=== PATIENT | male | born 1975 | race Caucasian/White ===

== ENCOUNTER 2020-10-14 09:35 | Outpatient (CLI) | payer OTHER ==
[2020-10-14] MEDS ORDERED: Magnevist 469MG/ML 20 ML VIAL ONE (09:58)
== END 2020-10-14 09:36 | disposition home or self-care (01) ==
LOC: BICMRI 09:35
PROVIDERS: ATTEND Urology
DX: N28.89 Other specified disorders of kidney and ureter (principal); N28.1 Cyst of kidney, acquired; K76.89 Other specified diseases of liver
CPT/HCPCS: 74183

== ENCOUNTER 2020-11-15 16:03 | Emergency (ER) | payer OTHER, SELFPAY ==
[2020-11-15 17:09] LABS: #Lymphocytes 2.5 thou/uL (1.20-3.40); #Monocytes 0.6 thou/uL (0.11-0.59); #Neutrophils 4.2 thou/uL (1.40-6.50); %Basophils 0.6 % (0.0-1.0); %Eosinophils 0.5 % (0.0-10.0); %Lymphocytes 33.8 % (21.0-51.0); %Monocytes 7.5 % (0.0-10.0); %Neutrophils 57.5 % (42.0-75.0); Hemoglobin 14.9 g/dL (14.0-18.0); Mean Corpuscular Hemoglobin 28.8 pg (27.0-31.0); Mean Corpuscular Volume 87.2 fL (78.0-98.0); Mean Platelet Volume 7.4 fL (7.4-10.4); Platelet Count 278 thou/uL (130-400); RBC Distribution Width 12.5 % (11.5-14.5); Red Blood Cell (RBC) Count 5.17 mill/uL (4.70-6.10); White Blood Cell (WBC) Count 7.3 thou/uL (4.8-10.8)
[2020-11-15 17:54] LABS: ALT (SGPT) 18 U/L (8-55); AST (SGOT) 12 U/L (5-34); Albumin 4.3 g/dL (3.5-5.0); Alkaline Phosphatase 93 U/L (40-110); Anion Gap 14 mmol/L (10-20); BUN (Urea Nitrogen) 13 mg/dL (8.9-20.6); Bilirubin, Total 0.3 mg/dL (0.2-1.2); Calc. Creatinine Clearance 0 mL/min (70-130); Calcium 9.6 mg/dL (7.8-10.44); Carbon Dioxide 19 mmol/L (22-29); Chloride 109 mmol/L (98-107); Glucose 83 mg/dL (70-105); Potassium 3.7 mmol/L (3.5-5.1); Protein, Total 7.3 g/dL (6.0-8.3); Sodium 138 mmol/L (136-145)
[2020-11-15 20:06] LABS: Troponin I Less than 0.010 ng/mL (< 0.028)
== END 2020-11-15 20:35 ==
LOC: ERS 16:03 → EEVIPCON 16:03 → ERS 20:35
DX: R07.89 Other chest pain (principal)
CPT/HCPCS: 36415; 71045; 80053; 84484; 85025; 93005

== ENCOUNTER → 2020-12-27 | Day surgery (SDC) | payer OTHER ==
[2020-12-22 10:45] VITALS: BMI 27.8
[~2020-12-27] MED LIST: Heparin 10,000 UNITS/ 10 ML VIAL ONE; Iopamidol 370 76% 100 ML VIAL ONE; Lidocaine 1% (PF) 30 ML VIAL ONE; Nitroglycerin 100MG/250ML BOT 250 ML ONE; Verapamil 5 MG/2 ML VIAL ONE
== END | disposition home or self-care (01) ==
LOC: CCL 05:42
PROVIDERS: ATTEND Internal Medicine Cardiovascular Disease
PROC: B2111ZZ Fluoroscopy of Multiple Coronary Arteries using Low Osmolar Contrast (ICD-10-PCS; principal; 2020-12-27)
PROC: 4A023N7 Measurement of Cardiac Sampling and Pressure, Left Heart, Percutaneous Approach (ICD-10-PCS; principal; 2020-12-27)
DX: I42.2 Other hypertrophic cardiomyopathy (principal); I47.2 Ventricular tachycardia; K21.9 Gastro-esophageal reflux disease without esophagitis; Z79.899 Other long term (current) drug therapy
CPT/HCPCS: 93458; J1644; J2001; Q9967

== ENCOUNTER 2021-01-03 10:00 | Outpatient (CLI) | payer OTHER | END 2021-01-03 10:01 | disposition home or self-care (01) | LOC: RAD 10:00 | PROVIDERS: ATTEND Family Medicine | DX: R06.00 Dyspnea, unspecified (principal) | CPT/HCPCS: 71046 ==

== ENCOUNTER 2021-02-22 11:23 | Outpatient (CLI) | payer OTHER | END 2021-02-22 11:24 | disposition home or self-care (01) | LOC: LABBT 11:23 | PROVIDERS: ATTEND Urology | DX: Z01.818 Encounter for other preprocedural examination (principal); I42.2 Other hypertrophic cardiomyopathy | CPT/HCPCS: 71046; 80048; 81001; 85027; 85610; 85730; 86850; 86900; 86901; 87086; 93005; 93010; U0003; U0005 ==

== ENCOUNTER 2021-02-22 11:30 | Inpatient (IN) | payer OTHER ==
[2021-02-22 13:02] LABS: Bilirubin Neg (Negative); Blood, Urine Negative (Negative); Clarity Slightly Cloudy (Clear); Glucose, Urine (Dipstick) Normal (Negative); Ketone, Urine Negative (Negative); Leukocyte Negative (Negative); Nitrite Negative (Negative); Protein, Urine (Dipstick) Negative (Neg-Trace); Urobilinogen Normal mg/dL (Less than 2)
[2021-02-22 13:17] LABS: Bacteria/HPF None Seen HPF (None Seen); Mucous/LPF 1+ LPF (<2+); RBC/HPF 0-3 HPF (0-3); Sperm/HPF 1+ HPF (None Seen); Squamous Epithelial 0-3 HPF (0-3); WBC/HPF 0-3 HPF (0-3)
[2021-02-22 13:21] LABS: Hemoglobin 14.7 g/dL (13.5-17.5); Mean Corpuscular HGB CONC 32.9 g/dL (32.0-36.0); Mean Corpuscular Hemoglobin 29.1 pg (27.0-33.0); Mean Corpuscular Volume 88.5 fl (81.2-95.1); Mean Platelet Volume 10.1 fl (7.4-10.4); Platelet Count 249 10x3/uL (150-450); Red Blood Cell (RBC) Count 5.05 10x6/uL (4.32-5.72); White Blood Cell (WBC) Count 6.5 10x3/uL (3.5-10.5)
[2021-02-22 13:28] LABS: PTT 22.7 sec (22.0-33.0); Prothrombin Time 10.7 sec (9.5-12.1)
[2021-02-22 13:36] LABS: Anion Gap 15 mmol/L (10-20); BUN (Urea Nitrogen) 17 mg/dL (8.9-20.6); Calc. Creatinine Clearance 0 mL/min (70-130); Calcium 9.5 mg/dL (7.8-10.44); Carbon Dioxide 23 mmol/L (22-29); Chloride 106 mmol/L (98-107); Glucose 100 mg/dL (70-105); Potassium 4.5 mmol/L (3.5-5.1); Sodium 139 mmol/L (136-145)
[2021-02-22 21:36] LABS: SARS-CoV-2 PCR by NAA Not Detected (NotDetected)
[2021-02-27] MEDS ORDERED: Fentanyl 100 MCG/2 ML VIAL ONE (11:38)
[2021-02-27] MEDS ORDERED: diphenhydrAMINE 50 MG/ML VIAL ONE ×3 (11:38→16:07)
[2021-02-27] MEDS ORDERED: diphenhydrAMINE 25 MG CAP ONE (11:38)
[2021-02-27] MEDS ORDERED: Sodium Chloride 0.9% 10 ML ONE (11:39)
[2021-02-27] MEDS ORDERED: Midazolam HCl 2 mg/2 ml Vial ONE ×2 (11:39→12:53)
[2021-02-27] MEDS ORDERED: Ketamine 50 MG/ML (10ML VIAL) ONE (11:40)
[2021-02-27] MEDS ORDERED: Morphine PF 10 MG/10 ML VIAL ONE (11:46)
[2021-02-27] MEDS ORDERED: Acetaminophen 500 MG TAB ONE (12:14)
[2021-02-27] MEDS ORDERED: Gabapentin 300 MG CAP ONE (12:14)
[2021-02-27] MEDS ORDERED: ceFAZolin 2 GM/DEX 5% 100 ML BAG ONE (12:14)
[2021-02-27] MEDS ORDERED: Labetalol HCl 100 MG/20 ML VIAL ONE (12:31)
[2021-02-27] MEDS ORDERED: Glycopyrrolate 0.2 MG/ML 5 ML SYRINGE ONE (12:31)
[2021-02-27] MEDS ORDERED: Phenylephrine 10 MG/ML VIAL ONE (12:31)
[2021-02-27] MEDS ORDERED: Rocuronium Bromide 10 MG/ML (10ML VIAL) ONE (12:31)
[2021-02-27] MEDS ORDERED: Esmolol 100 MG/10 ML VIAL ONE (12:31)
[2021-02-27] MEDS ORDERED: PROPOFOL 200 MG/20 ML VIAL ONE (12:31)
[2021-02-27] MEDS ORDERED: Albumin 5% 500 ML ONE (14:00)
[2021-02-27] MEDS ORDERED: Bupivacaine 0.25% 10 ML VIAL ONE ×3 (15:23→15:37)
[2021-02-27] MEDS ORDERED: Bupivacaine PF 0.5% 30 ML VIAL ONE (15:32)
[2021-02-27] MEDS ORDERED: diphenhydrAMINE 25 MG CAP PO PRN (16:27)
[2021-02-27] MEDS ORDERED: Ondansetron PF 4 MG/2 ML Vial IVP PRN (16:27)
[2021-02-27 17:03] LABS: Hemoglobin 12.5 g/dL (14.0-18.0); Mean Corpuscular HGB CONC 34.5 g/dL (32.0-36.0); Mean Corpuscular Hemoglobin 31.2 pg (27.0-31.0); Mean Corpuscular Volume 90.4 fL (78.0-98.0); Mean Platelet Volume 7.5 fL (7.4-10.4); Platelet Count 181 thou/uL (130-400); RBC Distribution Width 11.5 % (11.5-14.5); Red Blood Cell (RBC) Count 3.99 mill/uL (4.70-6.10); White Blood Cell (WBC) Count 9.5 thou/uL (4.8-10.8)
[2021-02-27] MEDS ORDERED: Morphine 4 MG/ML VIAL SLOW IVP PRN (17:07)
[2021-02-27 17:14] LABS: Anion Gap 13 mmol/L (10-20); BUN (Urea Nitrogen) 13 mg/dL (8.9-20.6); Calc. Creatinine Clearance 120 mL/min (70-130); Calcium 7.8 mg/dL (7.8-10.44); Carbon Dioxide 20 mmol/L (22-29); Chloride 109 mmol/L (98-107); Glucose 124 mg/dL (70-105); Potassium 4.2 mmol/L (3.5-5.1); Sodium 138 mmol/L (136-145)
[2021-02-27 17:53] VITALS: BMI 32.0
[2021-02-27] MEDS: Sodium Chloride 0.9% 1,000 ML IV SCH (18:28)
[2021-02-27] MEDS: Acetaminophen 500 MG TAB PO SCH (18:28)
[2021-02-27] MEDS: Docusate 100 MG CAP PO SCH (20:43)
[2021-02-27] MEDS: Gabapentin 300 MG CAP PO SCH (20:43)
[2021-02-27] MEDS: FLUoxetine HCl 20 MG CAP PO SCH (20:43)
[2021-02-27] MEDS: ceFAZolin 1 GM/D5W 1 GM in Premix Bag 1 BAG IVPB SCH (20:56)
[2021-02-28] MEDS: Acetaminophen 500 MG TAB PO SCH ×5 (00:29→23:52)
[2021-02-28 02:38] LABS: #Lymphocytes 0.7 thou/uL (1.20-3.40); #Monocytes 0.6 thou/uL (0.11-0.59); %Basophils 0.3 % (0.0-1.0); %Lymphocytes 6.5 % (21.0-51.0); %Neutrophils 88.2 % (42.0-75.0); Hemoglobin 12.4 g/dL (14.0-18.0); Mean Corpuscular Hemoglobin 30.9 pg (27.0-31.0); Mean Corpuscular Volume 90.7 fL (78.0-98.0); Mean Platelet Volume 7.1 fL (7.4-10.4); Platelet Count 181 thou/uL (130-400); RBC Distribution Width 11.4 % (11.5-14.5); Red Blood Cell (RBC) Count 4.02 mill/uL (4.70-6.10); White Blood Cell (WBC) Count 11.4 thou/uL (4.8-10.8)
[2021-02-28 03:15] LABS: Anion Gap 14 mmol/L (10-20); BUN (Urea Nitrogen) 15 mg/dL (8.9-20.6); Calc. Creatinine Clearance 92 mL/min (70-130); Calcium 8.5 mg/dL (7.8-10.44); Carbon Dioxide 20 mmol/L (22-29); Chloride 106 mmol/L (98-107); Glucose 155 mg/dL (70-105); Potassium 4.6 mmol/L (3.5-5.1); Sodium 135 mmol/L (136-145)
[2021-02-28 03:39] LABS: Magnesium 1.4 mg/dL (1.6-2.6)
[2021-02-28] MEDS: Sodium Chloride 0.9% 1,000 ML IV SCH (06:22)
[2021-02-28] MEDS: ceFAZolin 1 GM/D5W 1 GM in Premix Bag 1 BAG IVPB SCH ×2 (06:28→12:42)
[2021-02-28 07:55] LABS: HBCM Index 0.07 S/CO (0-0.79); HBSAg Index 0.31 S/CO (0-0.99); HIV (1/2) Antibody/Antigen Non-Reactive (NonReactive); HIV 1/2 INDEX 0.12 S/CO (<1.00); Hep A IgM AB Non-Reactive (NonReactive); Hep A IgM S/CO 0.11 S/CO (0-0.79); Hep B Surf Ag Non-Reactive S/CO (NonReactive); Hep C IgG Ab Non-Reactive (NonReactive); Hep C Index 0.03 S/CO (0-0.79); Hepatitis B Core IgM Abs Non-Reactive (NonReactive)
[2021-02-28] MEDS: Tamsulosin HCl 0.4 MG CAP PO SCH (08:07)
[2021-02-28] MEDS: Gabapentin 300 MG CAP PO SCH ×2 (08:07→21:12)
[2021-02-28] MEDS: Docusate 100 MG CAP PO SCH ×2 (08:07→21:13)
[2021-02-28] MEDS ORDERED: Magnesium 2 GM/50 ML 2 GM in Premix Bag 1 BAG IVPB SCH (08:30)
[2021-02-28] MEDS ORDERED: FLU VACC QS2021-22(6MOS UP)/PF 60 MCG/0.5 ML SYRINGE IM ONE (09:00)
[2021-02-28] MEDS ORDERED: guaiFENesin ER 600 MG TAB PO PRN (18:50)
[2021-02-28] MEDS: FLUoxetine HCl 20 MG CAP PO SCH (21:12)
[2021-03-01] MEDS: Morphine 4 MG/ML VIAL SLOW IVP PRN ×2 (04:36→15:08)
[2021-03-01 05:20] LABS: #Lymphocytes 1.5 thou/uL (1.20-3.40); #Monocytes 0.7 thou/uL (0.11-0.59); #Neutrophils 8.4 thou/uL (1.40-6.50); %Eosinophils 0.1 % (0.0-10.0); %Lymphocytes 14.1 % (21.0-51.0); %Monocytes 6.5 % (0.0-10.0); %Neutrophils 79.3 % (42.0-75.0); Hemoglobin 12.4 g/dL (14.0-18.0); Mean Corpuscular HGB CONC 33.2 g/dL (32.0-36.0); Mean Corpuscular Hemoglobin 29.8 pg (27.0-31.0); Mean Corpuscular Volume 89.8 fL (78.0-98.0); Mean Platelet Volume 7.6 fL (7.4-10.4); Platelet Count 184 thou/uL (130-400); RBC Distribution Width 11.5 % (11.5-14.5); Red Blood Cell (RBC) Count 4.16 mill/uL (4.70-6.10); White Blood Cell (WBC) Count 10.6 thou/uL (4.8-10.8)
[2021-03-01 05:47] LABS: Anion Gap 12 mmol/L (10-20); BUN (Urea Nitrogen) 16 mg/dL (8.9-20.6); Calc. Creatinine Clearance 95 mL/min (70-130); Calcium 9.3 mg/dL (7.8-10.44); Carbon Dioxide 23 mmol/L (22-29); Chloride 106 mmol/L (98-107); Glucose 112 mg/dL (70-105); Potassium 4.5 mmol/L (3.5-5.1); Sodium 136 mmol/L (136-145)
[2021-03-01] MEDS: Acetaminophen 500 MG TAB PO SCH ×4 (06:42→23:26)
[2021-03-01] MEDS: Docusate 100 MG CAP PO SCH ×2 (09:14→20:38)
[2021-03-01] MEDS: Gabapentin 300 MG CAP PO SCH ×2 (09:14→20:38)
[2021-03-01] MEDS: Tamsulosin HCl 0.4 MG CAP PO SCH (09:14)
[2021-03-01] MEDS: Heparin 5,000 UNITS/ML VIAL SC SCH ×2 (09:15→20:38)
[2021-03-01] MEDS: Simethicone Chewable 80 MG TAB PO PRN (20:38)
[2021-03-01] MEDS: FLUoxetine HCl 20 MG CAP PO SCH (20:38)
[2021-03-02] MEDS: Mag-Al 1200 mg/1200 mg/30 ML UDCUP PO PRN ×2 (04:36→21:40)
[2021-03-02 05:53] LABS: #Eosinphils 0.1 thou/uL (0.0-0.7); #Lymphocytes 1.8 thou/uL (1.20-3.40); #Monocytes 0.6 thou/uL (0.11-0.59); #Neutrophils 5.4 thou/uL (1.40-6.50); %Basophils 0.4 % (0.0-1.0); %Eosinophils 0.9 % (0.0-10.0); %Lymphocytes 23.1 % (21.0-51.0); %Neutrophils 68.7 % (42.0-75.0); Hemoglobin 12.6 g/dL (14.0-18.0); Mean Corpuscular HGB CONC 33.7 g/dL (32.0-36.0); Mean Corpuscular Hemoglobin 30.4 pg (27.0-31.0); Mean Corpuscular Volume 90.4 fL (78.0-98.0); Mean Platelet Volume 7.4 fL (7.4-10.4); Platelet Count 194 thou/uL (130-400); RBC Distribution Width 11.5 % (11.5-14.5); Red Blood Cell (RBC) Count 4.13 mill/uL (4.70-6.10); White Blood Cell (WBC) Count 7.9 thou/uL (4.8-10.8)
[2021-03-02] MEDS: Acetaminophen 500 MG TAB PO SCH ×4 (06:02→23:50)
[2021-03-02 06:21] LABS: Anion Gap 14 mmol/L (10-20); BUN (Urea Nitrogen) 14 mg/dL (8.9-20.6); Calc. Creatinine Clearance 110 mL/min (70-130); Calcium 8.9 mg/dL (7.8-10.44); Carbon Dioxide 23 mmol/L (22-29); Chloride 105 mmol/L (98-107); Glucose 100 mg/dL (70-105); Potassium 3.5 mmol/L (3.5-5.1); Sodium 138 mmol/L (136-145)
[2021-03-02] MEDS: Tamsulosin HCl 0.4 MG CAP PO SCH (09:20)
[2021-03-02] MEDS: Gabapentin 300 MG CAP PO SCH ×2 (09:20→19:36)
[2021-03-02] MEDS: Heparin 5,000 UNITS/ML VIAL SC SCH ×2 (09:20→19:37)
[2021-03-02] MEDS: Docusate 100 MG CAP PO SCH ×2 (09:20→19:36)
[2021-03-02] MEDS: Simethicone Chewable 80 MG TAB PO PRN ×2 (09:20→17:58)
[2021-03-02] MEDS: Bisacodyl 10 MG SUPP PR PRN ×2 (12:06→19:36)
[2021-03-02] MEDS: FLUoxetine HCl 20 MG CAP PO SCH (19:37)
[2021-03-03 05:28] LABS: #Basophils 0.1 thou/uL (0.0-0.2); #Eosinphils 0.1 thou/uL (0.0-0.7); #Lymphocytes 1.8 thou/uL (1.20-3.40); #Monocytes 0.6 thou/uL (0.11-0.59); #Neutrophils 3.5 thou/uL (1.40-6.50); %Basophils 0.9 % (0.0-1.0); %Eosinophils 1.6 % (0.0-10.0); %Lymphocytes 30.6 % (21.0-51.0); %Monocytes 9.2 % (0.0-10.0); %Neutrophils 57.7 % (42.0-75.0); Hemoglobin 12.6 g/dL (14.0-18.0); Mean Corpuscular HGB CONC 33.8 g/dL (32.0-36.0); Mean Corpuscular Hemoglobin 30.3 pg (27.0-31.0); Mean Corpuscular Volume 89.6 fL (78.0-98.0); Mean Platelet Volume 6.9 fL (7.4-10.4); Platelet Count 212 thou/uL (130-400); RBC Distribution Width 11.3 % (11.5-14.5); Red Blood Cell (RBC) Count 4.17 mill/uL (4.70-6.10)
[2021-03-03] MEDS: Acetaminophen 500 MG TAB PO SCH (05:45)
[2021-03-03 05:51] LABS: Anion Gap 14 mmol/L (10-20); BUN (Urea Nitrogen) 12 mg/dL (8.9-20.6); Calc. Creatinine Clearance 99 mL/min (70-130); Calcium 9.1 mg/dL (7.8-10.44); Carbon Dioxide 22 mmol/L (22-29); Chloride 103 mmol/L (98-107); Glucose 103 mg/dL (70-105); Potassium 3.8 mmol/L (3.5-5.1); Sodium 135 mmol/L (136-145)
[2021-03-03] MEDS: Tamsulosin HCl 0.4 MG CAP PO SCH (08:04)
[2021-03-03] MEDS: Heparin 5,000 UNITS/ML VIAL SC SCH (08:04)
[2021-03-03] MEDS: Docusate 100 MG CAP PO SCH (08:04)
[2021-03-03 11:45] VITALS: BP 133/89; TEMP 97.8
[2021-03-20 11:49] LABS: Actual Bicarbonate (HCO3a) 20.3 mEq/L (22-28); Analyzer IN Cardio OR; Base Excess (BEa) -5.1 mEq/L (-2.0 to +3.0); CO2 Tension 39.1 mmHg (35.0-45.0); Calcium, Ionized (arterial) 1.08 mmol/L (1.12-1.30); Carboxyhemoglobin (COHb) 0.5 gm% (0.0-3.0); Hemoglobin (Hb) 12.1 g/dL (14.0-18.0); O2 Tension (PaO2), arterial 96.9 mmHg (80.0-100.0); Potassium - ABG Lab 3.77 mmol/L (3.70-5.30); pH, Arterial 7.33 (7.35-7.45)
[2021-03-20 11:49] LABS: Actual Bicarbonate (HCO3a) 19.5 mEq/L (22-28); Analyzer IN Cardio OR; Base Excess (BEa) -5.6 mEq/L (-2.0 to +3.0); CO2 Tension 36.7 mmHg (35.0-45.0); Calcium, Ionized (arterial) 1.07 mmol/L (1.12-1.30); Carboxyhemoglobin (COHb) 0.3 gm% (0.0-3.0); O2 Tension (PaO2), arterial 197.1 mmHg (80.0-100.0); Potassium - ABG Lab 3.98 mmol/L (3.70-5.30); pH, Arterial 7.34 (7.35-7.45)
[2021-03-20 11:49] LABS: Actual Bicarbonate (HCO3a) 22.4 mEq/L (22-28); Analyzer IN Cardio OR; Base Excess (BEa) -2.8 mEq/L (-2.0 to +3.0); CO2 Tension 40.7 mmHg (35.0-45.0); Calcium, Ionized (arterial) 1.14 mmol/L (1.12-1.30); Carboxyhemoglobin (COHb) 0.4 gm% (0.0-3.0); Hemoglobin (Hb) 13.3 g/dL (14.0-18.0); O2 Tension (PaO2), arterial 83.9 mmHg (80.0-100.0); pH, Arterial 7.36 (7.35-7.45)
[2021-03-20 11:53] LABS: Puncture Site Arterial Line
[2021-03-20 11:53] LABS: Puncture Site Arterial Line
[2021-03-20 11:54] LABS: Puncture Site Arterial Line
== END 2021-03-03 12:24 | DRG 657 ==
LOC: EEVIPCON 02-27 10:40 → SURG A 02-27 10:40 → CCU 02-27 17:17 → SURG A 02-28 17:17
PROVIDERS: ADMIT Urology; ATTEND Urology
PROC: 0TB00ZZ Excision of Right Kidney, Open Approach (ICD-10-PCS; principal; 2021-02-27)
DX: C64.1 Malignant neoplasm of right kidney, except renal pelvis (principal); I47.1 Supraventricular tachycardia; I42.2 Other hypertrophic cardiomyopathy; Z20.822 Contact with and (suspected) exposure to COVID-19; R91.8 Other nonspecific abnormal finding of lung field; I25.10 Atherosclerotic heart disease of native coronary artery without angina pectoris; K21.9 Gastro-esophageal reflux disease without esophagitis; F41.9 Anxiety disorder, unspecified; Z79.899 Other long term (current) drug therapy; Z90.49 Acquired absence of other specified parts of digestive tract; Z82.49 Family history of ischemic heart disease and other diseases of the circulatory system; Z80.9 Family history of malignant neoplasm, unspecified; Z87.891 Personal history of nicotine dependence
CPT/HCPCS: 36415; 36416; 80048; 80074; 81001; 82805; 83735; 85025; 85027; 85610; 85730; 86850; 86900; 86901; 87086; 87389; 88307; 88341; 88342; A4306; A4649; C1713; C1776; C1889; J0690; J1200; J1642; J1644; J2250; J2270; J2274; J2370; J2704; J3010; J3475; J7050; P9045; S0020; U0003; U0005

== ENCOUNTER 2021-03-20 12:52 | Emergency (ER) | payer OTHER ==
[2021-03-20] MEDS ORDERED: Morphine 4 MG/ML VIAL ONE (15:02)
[2021-03-20 15:12] LABS: #Eosinphils 0.1 thou/uL (0.0-0.7); #Lymphocytes 2.1 thou/uL (1.20-3.40); #Monocytes 0.6 thou/uL (0.11-0.59); #Neutrophils 4.5 thou/uL (1.40-6.50); %Basophils 0.7 % (0.0-1.0); %Eosinophils 1.1 % (0.0-10.0); %Lymphocytes 28.9 % (21.0-51.0); %Monocytes 8.7 % (0.0-10.0); %Neutrophils 60.6 % (42.0-75.0); Hemoglobin 12.7 g/dL (14.0-18.0); Mean Corpuscular HGB CONC 33.6 g/dL (32.0-36.0); Mean Corpuscular Volume 89.1 fL (78.0-98.0); Mean Platelet Volume 6.7 fL (7.4-10.4); Platelet Count 265 thou/uL (130-400); RBC Distribution Width 11.2 % (11.5-14.5); Red Blood Cell (RBC) Count 4.24 mill/uL (4.70-6.10); White Blood Cell (WBC) Count 7.4 thou/uL (4.8-10.8)
[2021-03-20 15:27] LABS: ALT (SGPT) 17 U/L (8-55); AST (SGOT) 8 U/L (5-34); Albumin 3.9 g/dL (3.5-5.0); Alkaline Phosphatase 121 U/L (40-110); Anion Gap 14 mmol/L (10-20); BUN (Urea Nitrogen) 24 mg/dL (8.9-20.6); Bilirubin, Total 0.3 mg/dL (0.2-1.2); Calc. Creatinine Clearance 0 mL/min (70-130); Calcium 9.3 mg/dL (7.8-10.44); Carbon Dioxide 24 mmol/L (22-29); Chloride 104 mmol/L (98-107); Globulin 2.4 g/dL (2.4-3.5); Glucose 96 mg/dL (70-105); Potassium 3.8 mmol/L (3.5-5.1); Protein, Total 6.3 g/dL (6.0-8.3); Sodium 138 mmol/L (136-145)
[2021-03-20 15:32] LABS: Bilirubin Negative (Negative); Blood, Urine Negative (Negative); Clarity Clear (Clear); Glucose, Urine (Dipstick) Normal (Negative); Ketone, Urine Negative (Negative); Leukocyte Negative Leu/uL (Negative); Nitrite Negative (Negative); Protein, Urine (Dipstick) 10 mg/dL (Neg-Trace); Urobilinogen Normal mg/dL (Less than 2); pH, Urine 6.5 (5.0-9.0)
== END 2021-03-20 16:56 ==
LOC: ERS 12:52
DX: R10.9 Unspecified abdominal pain (principal)
CPT/HCPCS: 36415; 74176; 80053; 81003; 85025; 96374; J2270

== ENCOUNTER 2021-03-30 13:38 | Outpatient (CLI) | payer OTHER ==
[2021-03-30 14:29] LABS: Hemoglobin 13.5 g/dL (13.5-17.5); Mean Corpuscular HGB CONC 31.9 g/dL (32.0-36.0); Mean Corpuscular Hemoglobin 28.3 pg (27.0-33.0); Mean Corpuscular Volume 88.7 fl (81.2-95.1); Mean Platelet Volume 9.5 fl (7.4-10.4); Platelet Count 300 10x3/uL (150-450); RBC Distribution Width 11.9 % (11.5-14.5); Red Blood Cell (RBC) Count 4.77 10x6/uL (4.32-5.72); White Blood Cell (WBC) Count 7.2 10x3/uL (3.5-10.5)
[2021-03-30 15:08] LABS: Anion Gap 16 mmol/L (10-20); BUN (Urea Nitrogen) 19 mg/dL (8.9-20.6); Calc. Creatinine Clearance 0 mL/min (70-130); Calcium 9.6 mg/dL (7.8-10.44); Carbon Dioxide 23 mmol/L (22-29); Chloride 107 mmol/L (98-107); Glucose 101 mg/dL (70-105); Potassium 4.1 mmol/L (3.5-5.1); Sodium 142 mmol/L (136-145)
[2021-03-31 08:53] LABS: SARS-CoV-2 PCR by NAA Not Detected (NotDetected)
== END 2021-03-30 13:39 | disposition home or self-care (01) ==
LOC: LABBT 13:38
PROVIDERS: ATTEND Internal Medicine Cardiovascular Disease
DX: Z01.812 Encounter for preprocedural laboratory examination (principal); I42.9 Cardiomyopathy, unspecified; N28.89 Other specified disorders of kidney and ureter; R91.8 Other nonspecific abnormal finding of lung field; Z20.822 Contact with and (suspected) exposure to COVID-19
CPT/HCPCS: 80048; 85027; 85610; U0003; U0005

== ENCOUNTER 2021-04-04 06:26 | Day surgery (SDC) | payer OTHER ==
[2021-04-04] MEDS ORDERED: Gentamicin 80 MG/2 ML VIAL ONE (06:39)
[2021-04-04] MEDS ORDERED: CEFAZOLIN 1 GM VIAL ONE (06:39)
[2021-04-04] MEDS ORDERED: Propofol 500 MG/50 ML VIAL ONE ×2 (06:48→09:21)
[2021-04-04] MEDS ORDERED: Fentanyl 100 MCG/2 ML VIAL ONE ×4 (06:48→10:09)
[2021-04-04] MEDS ORDERED: Vancomycin 1.5 GRAM/300 ML BAG ONE (06:59)
[2021-04-04] MEDS ORDERED: Midazolam HCl 2 mg/2 ml Vial ONE (08:13)
[2021-04-04] MEDS ORDERED: Ondansetron PF 4 MG/2 ML Vial ONE (08:55)
[2021-04-04] MEDS ORDERED: Acetaminophen/Codeine 30-300mg Tablet ONE (12:07)
== END 2021-04-04 14:25 ==
LOC: EEVIPCON 06:26 → SDC 06:26
PROVIDERS: ATTEND Internal Medicine Cardiovascular Disease
PROC: 02H63KZ Insertion of Defibrillator Lead into Right Atrium, Percutaneous Approach (ICD-10-PCS; principal; 2021-04-04)
PROC: 3E0132A Introduction of Anti-Infective Envelope into Subcutaneous Tissue, Percutaneous Approach (ICD-10-PCS; principal; 2021-04-04)
PROC: 0JH608Z Insertion of Defibrillator Generator into Chest Subcutaneous Tissue and Fascia, Open Approach (ICD-10-PCS; principal; 2021-04-04)
PROC: 02HK3KZ Insertion of Defibrillator Lead into Right Ventricle, Percutaneous Approach (ICD-10-PCS; principal; 2021-04-04)
DX: I42.2 Other hypertrophic cardiomyopathy (principal); I47.2 Ventricular tachycardia; K21.9 Gastro-esophageal reflux disease without esophagitis; Z79.899 Other long term (current) drug therapy
CPT/HCPCS: 33249; 71045; 93005; C1763; C1777; C1898; J0690; J1580; J2250; J2405; J2704; J3010; J3370